=== PATIENT | male | born 1970 | race Two or more races ===

== ENCOUNTER → 2017-12-09 | Outpatient (CLI) | payer OTHER ==
[~2017-12-09] MED LIST: ASPI81CH PO; ATOR10 PO; Humalog100 UNIT/1; INSULANPEN SC; LISI5 PO; PIOG15 PO
[2017-12-09 14:18] LABS: Protein, Urine Quantitative 81.5 mg/dL (0.0-11.9)
== END ==
LOC: LAB SRC 06:40
PROVIDERS: Nurse Practitioner Family
DX: R80.9 Proteinuria, unspecified (principal); E10.65 Type 1 diabetes mellitus with hyperglycemia; I10 Essential (primary) hypertension
CPT/HCPCS: 81050; 84156